=== PATIENT | male | born 2000 ===

== ENCOUNTER 2021-01-26 10:52 | Emergency (ER) | payer BC ==
[~2021-01-26] VITALS: Ht 180.3 cm; Wt 66.5 kg
--- NOTE | 2021-01-26 11:20 | NUR ---
THIS IS A 20 YO M BIB GF W/ C/O AMS STARTING THIS MORNING. PER GF PT WAS NOT ANSWERING QUESTIONS APPROPRIATELY AND RESPONDING TO HER QUESTIONS W/ VIDEO GAME RELATED ANSWERS. PT REPORTS AUDITORY HALLUCINATIONS. PT REPORTS TAKING 10 BENADRYL, DRINKING ALCOHOL AND SMOKING WEED LAST NIGHT. PER PTS GF PT HAS BEEN OUT OF ANXIETY/DEPRESSION MEDS X5 DAYS. GF REPORTS PT NOT SLEEPING X1 WEEK. SA X1 MONTH AGO W/ BENADRYL. PT CHANGED INTO GOWN, FAMILY AT BEDSIDE, RESP EVEN AND UNLABORED, NADN. AT BEDSIDE FOR EVAL.
--- NOTE | 2021-01-26 11:30 | NUR ---
LAB AT BEDSIDE.
--- NOTE | 2021-01-26 11:33 | NUR ---
PER [facility] PT HAD LEXAPRO 10MG ONCE A DAY FILLED ON 12/13/20
[2021-01-26] MEDS ORDERED: ESCI10TA10 PO (11:35)
--- NOTE | 2021-01-26 11:39 | NUR ---
SITTER REQUESTED FROM CHARGE NURSE. ANVIL SEATING PRESS OPERATOR STUDENT CHIKI AT BEDSIDE FOR IV START. REPORT GIVEN TO DELFIN FOWLER. PT RESTING ON GURNEY W/ FAMILY AT BEDSIDE AND SIDE RAILS UPX2. RESP EVEN AND UNLABORED, CLAU.
[2021-01-26 11:43] LABS: BASOPHILS % (AUTO) 1 % (0-1); EOSINOPHILS % (AUTO) 2 % (1-7); LYMPHOCYTES % (AUTO) 35 % (22-44); MEAN CORPUSCULAR HEMOGLOBIN 30.3 pg (27.5-34.5); MEAN CORPUSCULAR HGB CONC 34.2 g/dL (33.2-36.2); MEAN PLATELET VOLUME 7.4 fL (7.4-10.4); MONOCYTES % (AUTO) 10 % (2-9); NEUTROPHILS % (AUTO) 53 % (42-75); PLATELET COUNT 288 x10^3/uL (130-400); RED BLOOD COUNT 5.32 x10^6/uL (4.38-5.82); RED CELL DISTRIBUTION WIDTH 13.3 % (9.4-14.8)
--- NOTE | 2021-01-26 11:43 | NUR ---
BRI MARQUEZ AT BEDSIDE FOR EVAL.
[2021-01-26 11:57] LABS: ALBUMIN 4.5 g/dL (3.4-5.0); ANION GAP 9 mmol/L (5-15); CALCIUM 9.9 mg/dL (8.5-10.1); CHLORIDE 111 mmol/L (98-107)
[2021-01-26] MEDS ORDERED: SODIUM CHLORIDE 0.9%, 500ML IVBOLUS ONE (12:00)
[2021-01-26 12:10] LABS: ALANINE AMINOTRANSFERASE 18 U/L (12-78); ALKALINE PHOSPHATASE 89 U/L (45-117); BILIRUBIN,TOTAL 0.7 mg/dL (0.2-1.0); CREATININE 0.91 mg/dL (0.7-1.3); TOTAL PROTEIN 7.8 g/dL (6.4-8.2)
[2021-01-26 12:11] LABS: SALICYLATE LEVEL < 1.7 mg/dL (2.8-20.0)
[2021-01-26 12:24] LABS: FREE T4 (FREE THYROXINE) 1.06 ng/dL (0.76-1.46)
[2021-01-26] MEDS ORDERED: OLANZAPINE 2.5 MG TABLET PO ONE (12:30)
[2021-01-26] MEDS ORDERED: ESCITALOPRAM 10MG TABLET PO ONE (12:30)
--- NOTE | 2021-01-26 13:37 | NUR ---
TOOK REPORT FROM DELFIN FOWLER ASSUME, CARE AT THIS TIME.
--- NOTE | 2021-01-26 14:49 | NUR ---
PATIENT TRANSFERRED FROM ROOM 18 TO ROOM 1, PENDING BED ASSIGNMENT FOR BHU. ALL PATIENT BELONGINGS LOCKED IN CABINET, SUICIDE PRECAUTIONS IN PLACE, SITTER IN LINE OF SIGHT.
[2021-01-26 14:50] VITALS: BP 133/73
--- NOTE | 2021-01-26 15:00 | NUR ---
REPORT TO JANETH JOVEL ON U FOR TRANSFER OF PATIENT CARE.
[2021-01-26 15:26] LABS: MICROSCOPIC NOT IND
--- NOTE | 2021-01-26 16:04 | NUR ---
PATIENT TRANSFERRED TO U VIA WHEELCHAIR WITH 2 ED TECHS, BAG OF PATIENT BELONGINGS TAKEN FROM LOCKED CABINET AND TAKEN TO FLOOR WITH PATIENT.
[2021-01-26 16:07] LABS: AMPHETAMINE SCREEN, URINE Negative (Negative); BARBITURATE SCREEN, URINE Negative (Negative); BENZODIAZEPINE SCREEN, URINE Negative (Negative); CANNABINOID SCREEN, URINE Positive (Negative); COCAINE SCREEN, URINE Negative (Negative); METHADONE SCREEN, URINE Negative (Negative); OPIATE SCREEN, URINE Negative (Negative)
[2021-01-30] MEDS ORDERED: OLAN5TAB69 PO (16:58)
== END 2021-01-26 16:05 ==
LOC: ED 14:21
DX: R45.851 Suicidal ideations (principal); Z20.822 Contact with and (suspected) exposure to COVID-19; F32.9 Major depressive disorder, single episode, unspecified; F23 Brief psychotic disorder; R00.0 Tachycardia, unspecified
CPT/HCPCS: 36415; 80053; 80299; 80307; 80320; 80329; 81003; 84439; 84443; 85025; 87426; 93005; 96360; 99285; J7040; G0480

== ENCOUNTER 2021-01-26 15:01 | Inpatient (IN) | payer BC ==
[~2021-01-26] VITALS: Ht 180.3 cm; Wt 62.2 kg
[~2021-01-26 15:01] MED LIST: ESCI10TA10 PO
[2021-01-26] MEDS ORDERED: ONDANSETRON ODT 4 MG PO PRN (15:30)
[2021-01-26] MEDS ORDERED: DOCUSATE 100 MG CAPSULE PO PRN (15:30)
[2021-01-26] MEDS ORDERED: POLYETHYLENE GLYCOL 17 GM PACKET PO PRN (15:30)
[2021-01-26] MEDS ORDERED: ACETAMINOPHEN 325 MG TABLET PO PRN (15:30)
[2021-01-26] MEDS ORDERED: BISACODYL 10 MG SUPP PR PRN (15:30)
[2021-01-26] MEDS ORDERED: PLEASE ENTER HEIGHT AND WEIGHT MC SCH (16:30)
[2021-01-26 16:52] VITALS: BP 145/89
[2021-01-26 19:47] VITALS: BP 113/76
[2021-01-27 07:14] VITALS: BP 128/82
[2021-01-27] MEDS: ESCITALOPRAM 10MG TABLET PO SCH (08:11)
[2021-01-27] MEDS ORDERED: OLANZAPINE 2.5 MG TABLET PO SCH (09:00)
[2021-01-27 18:59] VITALS: BP 126/81
[2021-01-27] MEDS: OLANZAPINE 5 MG TABLET PO SCH (20:36)
[2021-01-28 07:01] LABS: LDL/HDL RATIO 1.7 (0.5-3.0)
[2021-01-28 07:37] VITALS: BP_SYST 114; BP_SYST 126; BP_DIAS 76; BP_DIAS 81
[2021-01-28] MEDS: ESCITALOPRAM 10MG TABLET PO SCH (08:31)
[2021-01-28 19:33] VITALS: BP 138/83
[2021-01-28] MEDS: OLANZAPINE 5 MG TABLET PO SCH (20:13)
[2021-01-29 07:31] VITALS: BP 119/82
[2021-01-29] MEDS: ESCITALOPRAM 10MG TABLET PO SCH (08:05)
[2021-01-29 19:38] VITALS: BP 128/82
[2021-01-29] MEDS: OLANZAPINE 5 MG TABLET PO SCH (20:04)
[2021-01-30 07:47] VITALS: BP 104/75
[2021-01-30] MEDS: ESCITALOPRAM 10MG TABLET PO SCH (08:39)
[2021-01-30] MEDS ORDERED: ESCI10TA97 PO (16:58)
[2021-01-30] MEDS ORDERED: OLAN5TAB9 PO (16:58)
[2021-01-30 19:31] VITALS: BP 126/79
[2021-01-30] MEDS: OLANZAPINE 5 MG TABLET PO SCH (20:21)
[2021-01-31 07:47] VITALS: BP 129/85
[2021-01-31] MEDS: ESCITALOPRAM 10MG TABLET PO SCH (08:51)
== END 2021-01-31 14:07 | disposition home or self-care (01) | DRG 885 ==
LOC: 3E 16:12
PROVIDERS: ADMIT Psychiatry & Neurology Psychosomatic Medicine; ATTEND Psychiatry & Neurology Psychosomatic Medicine
DX: F31.2 Bipolar disorder, current episode manic severe with psychotic features (principal); R45.851 Suicidal ideations; F12.10 Cannabis abuse, uncomplicated
CPT/HCPCS: 36415; 71045; 80061; 93005